=== PATIENT | female | born 1965 | race American Indian/Alaskan Native ===

== ENCOUNTER 2018-01-04 15:44 | Emergency (ER) | payer OTHER ==
[2018-01-04 15:54] VITALS: BMI 47.4
[2018-01-04 15:55] VITALS: TEMP 98.3
--- NOTE | 2018-01-04 16:06 | ED PDOC ---
Arrival/HPI - General Chief Complaint: Cough, Cold, Congestion Time Seen by Provider: 01/04/18 16:04 Historian: Patient - History of Present Illness Narrative History of Present Illness (Text): 01/04/18 16:24 A 52 year old female, whose past medical history includes DM, HTN, asthma, and bronchitis, presents to the emergency department complaining of cough with whitish-yellowish phlegm. Patient reports also experiencing stuffy nose and ears. States she went to go see her doctor but was told she had to make an appointment. Has been taking Robitussin but has had no relief. Patient denies shortness of breath, chest pain, chills, or any other complaints at this time. 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 Denies any history of smoking. PMD: Dr. Roberts Past Medical History - Provider Review Nursing Documentation Reviewed: Yes - Infectious Disease Hx of Infectious Diseases: None - Tetanus Immunization Tetanus Immunization: Unknown - Cardiac Hx Cardiac Disorders: Yes Hx Hypertension: Yes - Pulmonary Hx Respiratory Disorders: Yes Hx Bronchitis: Yes - Neurological Hx Neurological Disorder: No - HEENT Hx HEENT Disorder: No - Renal Hx Renal Disorder: No - Endocrine/Metabolic Hx Endocrine Disorders: No - Hematological/Oncological Hx Blood Disorders: No - Integumentary Hx Dermatological Disorder: No - Musculoskeletal/Rheumatological Hx Musculoskeletal Disorders: No - Gastrointestinal Hx Gastrointestinal Disorders: Yes Hx Diverticulitis: Yes Hx Gastroesophageal Reflux: Yes Other/Comment: Colon sx - Genitourinary/Gynecological Hx Genitourinary Disorders: No - Psychiatric Hx Psychophysiologic Disorder: Yes Hx Anxiety: Yes Hx Substance Use: No - Surgical History Other/Comment: Abdominal and colon - pt uncertain of what exactly the surgery was - Suicidal Assessment Feels Threatened In Home Enviroment: No Family/Social History - Physician Review Nursing Documentation Reviewed: Yes Family/Social History: No Known Family HX Smoking Status: Never Smoked Hx Alcohol Use: No Hx Substance Use: No Hx Substance Use Treatment: No Allergies/Home Meds Allergies/Adverse Reactions: Allergies No Known Allergies Allergy (Verified 01/04/18 15:55) Home Medications: Home Meds Medication Instructions Recorded Confirmed Enalapril [Vasotec] 10 mg PO DAILY 03/13/12 01/04/18 Aspirin [Lo-Dose Aspirin EC] 81 mg PO DAILY 01/04/18 01/04/18 Hydrochlorothiazide [Microzide] 12.5 mg PO DAILY 01/04/18 01/04/18 Simvastatin [Zocor] 20 mg PO DAILY 01/04/18 01/04/18 metFORMIN [glucOPHAGE] 850 mg PO BID 01/04/18 01/04/18 Review of Systems - Physician Review All systems were reviewed & negative as marked: Yes - Review of Systems Constitutional: absent: Night Sweats ENT: Sinus Congestion Respiratory: Cough (with whitish-yellowish phlegm). absent: SOB Cardiovascular: absent: Chest Pain Physical Exam Vital Signs Reviewed: Yes Vital Signs Temp Pulse Resp BP Pulse Ox 01/04/18 15:54 98.3 F 96 H 17 143/88 96 Temperature: Afebrile Blood Pressure: Normal Pulse: Regular Respiratory Rate: Normal Appearance: Positive for: Well-Appearing, Non-Toxic, Comfortable Pain Distress: None Mental Status: Positive for: Alert and Oriented X 3 - Systems Exam Head: Present: Atraumatic, Normocephalic Pupils: Present: PERRL Extroacular Muscles: Present: EOMI Conjunctiva: Present: Normal Ears: No: NORMAL TM (fluid in TM b/l) Mouth: Present: Moist Mucous Membranes Neck: Present: Normal Range of Motion Respiratory/Chest: Present: Decreased Breath Sounds, Rhonchi (scattered). No: Wheezes Cardiovascular: Present: Regular Rate and Rhythm, Normal S1, S2. No: Murmurs Abdomen: No: Tenderness, Distention, Peritoneal Signs Back: Present: Normal Inspection Upper Extremity: Present: Normal Inspection. No: Cyanosis, Edema Lower Extremity: Present: Normal Inspection. No: Edema Neurological: Present: GCS=15, CN II-XII Intact, Speech Normal Skin: Present: Warm, Dry, Normal Color. No: Rashes Psychiatric: Present: Alert, Oriented x 3, Normal Insight, Normal Concentration Medical Decision Making ED Course and Treatment: 01/04/18 16:25 Impression: 52 year old female with cough, congestion. Physical exam shows rhonchi scattered, no wheezing, fluid TM b/l. Plan: -- Duoneb -- Reassess and disposition Progress Notes: 01/04/18 17:35 Upon reassessment, patient's liungs are clear and she states her symptoms have resolved. Patient states she has a prescription for an inhaler from her PCP and will get it filled upon discharge. Patient is stable for d/c and is agreeable w/POC. Patient to be discharged at this time. - Scribe Statement The provider has reviewed the documentation as recorded by the Gianfranco Wong Provider Scribe Provider Scribe Attestation: All medical record entries made by the Scribe were at my direction and personally dictated by me. I have reviewed the chart and agree that the record accurately reflects my personal performance of the history, physical exam, medical decision making, and the department course for this patient. I have also personally directed, reviewed, and agree with the discharge instructions and disposition. Disposition/Present on Arrival - Present on Arrival Any Indicators Present on Arrival: No History of DVT/PE: No History of Uncontrolled Diabetes: No Urinary Catheter: No History of Decub. Ulcer: No History Surgical Site Infection Following: None - Disposition Have Diagnosis and Disposition been Completed?: Yes Diagnosis: Bronchitis Disposition: HOME/ ROUTINE Disposition Time: 17:35 Patient Plan: Discharge Condition: IMPROVED Discharge Instructions (ExitCare): Acute Bronchitis Additional Instructions: IRMA ASHLEY, thank you for letting us take care of you today. Your provider was Armida Portillo MD and you were treated for COUGHING/COLD. The emergency medical care you received today was directed at your acute symptoms. If you were prescribed any medication, please fill it and take as directed. It may take several days for your symptoms to resolve. Return to the Emergency Department if your symptoms worsen, do not improve, or if you have any other problems. Please contact your doctor or call one of the physicians/clinics you have been referred to that are listed on the Patient Visit Information form that is included in your discharge packet. Bring any paperwork you were given at discharge with you along with any medications you are taking to your follow up visit. Our treatment cannot replace ongoing medical care by a primary care provider outside of the emergency department. Thank you for allowing the [facility] team to be part of your care today. Referrals: Valentina Roberts MD [Primary Care Provider] - Follow up with primary Forms: [employer] (Angolan)
[2018-01-04] MEDS: Albuterol-Ipratrop 3 mg / 0.5 (3 ml) UD IH SCH ×3 (16:15→16:39)
[2018-01-04 18:20] VITALS: BP 144/82; PULSE 98; RESP 20; O2SAT 98
== END 2018-01-04 18:20 | disposition home or self-care (01) ==
LOC: ED 15:44
DX: J40 Bronchitis, not specified as acute or chronic (principal)

== ENCOUNTER 2018-03-13 17:59 | Emergency (ER) | payer OTHER ==
[2018-03-13 17:59] VITALS: BMI 47.4
[2018-03-13] MEDS ORDERED: TDAP Vaccine 0.5 mL Syr IM ONE (18:28)
--- NOTE | 2018-03-13 18:28 | ED PDOC ---
Arrival/HPI - General Chief Complaint: Abnormal Skin Integrity Historian: Patient - History of Present Illness Narrative History of Present Illness (Text): 03/13/18 18:25 52 y/o female, pmh including htn/hld/dm/low vitamin D/asthma, nkda, last tetanus over 10 years ago, c/o rt. lateral forehead laceration x 1 hour. Pt. was cleaning the clothing at home, tripped over the string, fall on the rt. eyebrow and forehead region, sustained laceration, no dental or neck/back/extremity injury, no LOC, no nausea/vomiting, no numbness or tingling, no abdominal or chest injury, no chest pain or shortness of breath, no other medical or psychological complaints. Past Medical History - Provider Review Nursing Documentation Reviewed: Yes - Infectious Disease Hx of Infectious Diseases: None - Tetanus Immunization Tetanus Immunization: Unknown - Reproductive Menopause: Yes - Cardiac Hx Cardiac Disorders: Yes Hx Hypertension: Yes - Pulmonary Hx Respiratory Disorders: Yes Hx Bronchitis: Yes - Neurological Hx Neurological Disorder: No - HEENT Hx HEENT Disorder: No - Renal Hx Renal Disorder: No - Endocrine/Metabolic Hx Endocrine Disorders: Yes Hx Diabetes Mellitus Type 2: Yes - Hematological/Oncological Hx Blood Disorders: No - Integumentary Hx Dermatological Disorder: No - Musculoskeletal/Rheumatological Hx Musculoskeletal Disorders: No - Gastrointestinal Hx Gastrointestinal Disorders: Yes Hx Diverticulitis: Yes Hx Gastroesophageal Reflux: Yes Other/Comment: Colon sx - Genitourinary/Gynecological Hx Genitourinary Disorders: No - Psychiatric Hx Psychophysiologic Disorder: Yes Hx Anxiety: Yes Hx Substance Use: No - Surgical History Other/Comment: Abdominal - Suicidal Assessment Feels Threatened In Home Enviroment: No Family/Social History - Physician Review Nursing Documentation Reviewed: Yes Family/Social History: Unknown Family HX Smoking Status: Never Smoked Hx Alcohol Use: No Hx Substance Use: No Hx Substance Use Treatment: No Allergies/Home Meds Allergies/Adverse Reactions: Allergies No Known Allergies Allergy (Verified 03/13/18 18:16) Home Medications: Home Meds Medication Instructions Recorded Confirmed Enalapril [Vasotec] 10 mg PO DAILY 03/13/12 03/13/18 Aspirin [Lo-Dose Aspirin EC] 81 mg PO DAILY 01/04/18 03/13/18 Hydrochlorothiazide [Microzide] 25 mg PO DAILY 01/04/18 03/13/18 Simvastatin [Zocor] 20 mg PO DAILY 01/04/18 03/13/18 metFORMIN [glucOPHAGE] 850 mg PO BID 01/04/18 03/13/18 Cholecalciferol (Vitamin D3) 1 cap PO Q7D 03/13/18 03/13/18 [Vitamin D3] Review of Systems - Review of Systems Constitutional: absent: Fatigue, Fevers Eyes: absent: Vision Changes ENT: absent: Hearing Changes Respiratory: absent: SOB, Cough Cardiovascular: absent: Chest Pain Gastrointestinal: absent: Abdominal Pain, Diarrhea, Nausea, Vomiting Musculoskeletal: absent: Arthralgias, Neck Pain, Joint Swelling, Myalgias Skin: Laceration. absent: Rash, Pruritis, Skin Lesions, Abscess, Ulcer, Cellulitis Neurological: absent: Headache, Dizziness Psychiatric: absent: Anxiety, Depression, Suicidal Ideation Physical Exam Vital Signs Reviewed: Yes Vital Signs Temp Pulse Resp BP Pulse Ox 03/13/18 18:18 98.1 F 89 17 160/89 H 97 Temperature: Afebrile Blood Pressure: Hypertensive Pulse: Regular Respiratory Rate: Normal Appearance: Positive for: Well-Appearing, Non-Toxic, Comfortable Pain Distress: Mild Mental Status: Positive for: Alert and Oriented X 3 - Systems Exam Head: Present: Atraumatic, Normocephalic, Other (Facial: rt. lateral eyerbow not involving the hair region noted to have 1.5cm superficial to intermediate depth laceration with no swelling on the rt. supralateral orbital rim region with mild ecchymosis. ). No: Tenderness, Contusion, Swelling, Ecchymosis, Abrasion Pupils: Present: PERRL, Other (no entractment or gaze. ) Extroacular Muscles: Present: EOMI. No: Entrapment Conjunctiva: Present: Normal Ears: Present: NORMAL TM, Normal Canal. No: Erythema Mouth: Present: Moist Mucous Membranes Pharnyx: Present: Normal. No: ERYTHEMA, TONSILS ENLARGED Nose (External): Present: Atraumatic. No: Abrasion, Contusion, Laceration Nose (Internal): Present: Normal Inspection, No Active Bleeding. No: Rhinorrhea, Septal Hematoma, Epistaxis Neck: Present: Normal Range of Motion, Trachea Midline. No: Meningeal Signs, MIDLINE TENDERNESS, Paraspinal Tenderness, Lymphadenopathy Respiratory/Chest: Present: Clear to Auscultation, Good Air Exchange. No: Respiratory Distress, Accessory Muscle Use Cardiovascular: Present: Regular Rate and Rhythm, Normal S1, S2. No: Murmurs Abdomen: No: Tenderness, Distention, Peritoneal Signs, Rebound, Guarding Back: Present: Normal Inspection. No: CVA Tenderness, Midline Tenderness, Paraspinal Tenderness, Pain with Leg Raise, Decubitus Ulcer Upper Extremity: Present: Normal Inspection, Normal ROM, NORMAL PULSES, Neurovascularly Intact, Capillary Refill < 2s. No: Cyanosis, Edema, Tenderness, Swelling, Deformity Lower Extremity: Present: Normal Inspection, NORMAL PULSES, Normal ROM, Neurovascularly Intact, Capillary Refill < 2 s. No: Edema, Tenderness, Swelling, Deformity Neurological: Present: GCS=15, CN II-XII Intact, Speech Normal, Motor Func Grossly Intact, Gait Normal, Memory Normal Skin: Present: Warm, Dry, Normal Color. No: Rashes Psychiatric: Present: Alert, Oriented x 3, Normal Insight, Normal Concentration Medical Decision Making ED Course and Treatment: 03/13/18 18:32 -CT -tdap -wound irrigate and clean -will suture 03/13/18 18:35 Procedure: Laceration Repair Performed by the emergency provider Location: Rt. lateral supralateral orbital region Description: 1.5cm superficial to intermediate dept Distal CMS: Normal. No deficits. Neurovascularly intact. Anesthesia: Lidocaine 1% 0.5cc Preperation: The wound was cleaned with NS 1000cc and clean with Betadyne. The area was prepped and draped in the usual sterile fashion. Exploration: The wound was explored and no foreign bodies were found. Procedure: The wound was closed with 6-0 nylon. There was () approximation. In total, 4 were used. Post-Procedure: Good closure and hemostasis. The patient tolerated procedure well and there were no complications. CMS remains intact. Post procedure dressing applied. 03/13/18 22:20 -CT Head: No acute intracranial abnormality. -CT Facial:Unremarkable maxillofacial CT -Pain decreased, feeling much better, -Discharge home with tylenol, bacitracin oinment, ice pack, keep the dressing and sutures dry and clean for 2 days then clean clean it twice daily, sutures removed by day 5-6, follow up with your own pmd within 2 days, return to the ER for any new or worsening signs or symptoms. - RAD Interpretation Radiology Orders: 03/13/18 18:24 HEAD W/O CONTRAST [CT] Stat MAXILLOFACIAL W/O CONTRAST [CT] Stat -CT Head: EXAM: CT Head without Intravenous Contrast. CLINICAL HISTORY: FALL TECHNIQUE: Axial computed tomography images of the head/brain without intravenous contrast. 1001.19 mGy-cm COMPARISON: None provided. FINDINGS: BRAIN No acute intraparenchymal hemorrhage. No mass lesion. No CT evidence for acute territorial infarct. No midline shift or extra-axial collections. VENTRICLES: No hydrocephalus. ORBITS: The orbits are unremarkable. SINUSES AND MASTOIDS: The paranasal sinuses and mastoid air cells are clear. BONES: No fracture. SOFT TISSUES: Unremarkable. IMPRESSION: No acute intracranial abnormality. Electronically signed on Mar 13, 2018 10:18:16 PM EST by: Carlos Farrell M.D., MBA Certified By ABR & CBC[employer] Fellowship Trained MRI and CT Specialist --------- - -CT Facial: EXAM: CT Maxillofacial without Intravenous Contrast. CLINICAL HISTORY: FALL - SUSTAINED LACERATION TECHNIQUE: Axial computed tomography images of the face without intravenous contrast. Sagittal and coronal reformatted images were generated. 821.77 mGy-cm CONTRAST: Without COMPARISON: None provided. FINDINGS: BONES: No acute fracture or aggressive appearing osseous lesion. The mandible is intact. SOFT TISSUES: The soft tissues are unremarkable. SINUSES: The sinuses are clear. ORBITS: The orbits are normal. No retrobulbar hematoma or mass. IMPRESSION: Unremarkable maxillofacial CT. Electronically signed on Mar 13, 2018 9:19:42 PM EST by: Carlos Farrell M.D., MBA Certified By [facility]BR & CBC[employer] Fellowship Trained MRI and CT Specialist Interior Assemblies Installer: Radiologist - PA / DRAFTER / Resident Statement MD/DO has reviewed & agrees with the documentation as recorded. Disposition/Present on Arrival - Present on Arrival Any Indicators Present on Arrival: No History of DVT/PE: No History of Uncontrolled Diabetes: Yes Urinary Catheter: No History of Decub. Ulcer: No History Surgical Site Infection Following: None - Disposition Have Diagnosis and Disposition been Completed?: Yes Diagnosis: Fall, Facial laceration, Facial contusion Disposition: HOME/ ROUTINE Disposition Time: 19:15 Patient Plan: Discharge Patient Problems: Current Active Problems Problem Status Onset Fall Acute Facial laceration Acute Facial contusion Acute Condition: IMPROVED Additional Instructions: -Discharge home with tylenol, bacitracin oinment, ice pack, keep the dressing and sutures dry and clean for 2 days then clean clean it twice daily, sutures removed by day 5-6, follow up with your own pmd within 2 days, return to the ER for any new or worsening signs or symptoms. Prescriptions: Acetaminophen [Pain Relief] 500 mg PO QID PRN #30 tablet PRN Reason: Other Bacitracin Ointment [Bacitracin] 1 appful TOP BID #15 g Referrals[facility] [place]] - Follow up with primary Forms: [facility] (Croatian), WORK NOTE
[2018-03-13 22:18] VITALS: PULSE 80; RESP 16; TEMP 98.2; O2SAT 98
[2018-03-13 22:23] VITALS: BP 150/86
--- NOTE | 2018-03-14 08:48 | CT ---
Date of service: 03/13/2018 PROCEDURE: CT HEAD WITHOUT CONTRAST. HISTORY: fall COMPARISON: None available. TECHNIQUE: Axial computed tomography images were obtained through the head/brain without intravenous contrast. Radiation dose: Total exam DLP = 1001.19 mGy-cm. This CT exam was performed using one or more of the following dose reduction techniques: Automated exposure control, adjustment of the mA and/or kV according to patient size, and/or use of iterative reconstruction technique. FINDINGS: HEMORRHAGE: No intracranial hemorrhage. BRAIN: No mass effect or edema. No atrophy or chronic microvascular ischemic changes. VENTRICLES: Unremarkable. No hydrocephalus. CALVARIUM: Unremarkable. PARANASAL SINUSES: Unremarkable as visualized. No significant inflammatory changes. MASTOID AIR CELLS: Unremarkable as visualized. No inflammatory changes. OTHER FINDINGS: The report concurs with the preliminary [facility] report IMPRESSION: No acute findings
--- NOTE | 2018-03-14 08:50 | CT ---
Date of service: 03/13/2018 PROCEDURE: CT MAXILLOFACIAL BONES WITHOUT CONTRAST HISTORY: fall, sustained laceration COMPARISON: None available. TECHNIQUE: Contiguous axial CT images of the maxillofacial bones were obtained. Coronal and sagittal reformats were generated. Radiation dose: Total exam DLP = 821.77 mGy-cm. This CT exam was performed using one or more of the following dose reduction techniques: Automated exposure control, adjustment of the mA and/or kV according to patient size, and/or use of iterative reconstruction technique. FINDINGS: NASAL BONES: Unremarkable. ORBITS: Unremarkable. PARANASAL SINUSES/ MASTOIDS: Clear. MAXILLA: Unremarkable. MANDIBLE/ TEMPOROMANDIBULAR JOINTS: Unremarkable. SKULL BASE: Unremarkable. TEMPORAL BONES: Middle ears and mastoid grossly unremarkable. OTHER FINDINGS: The report concurs with the preliminary [facility] report IMPRESSION: Unremarkable non contrast enhanced CT of the maxillofacial bones.
== END 2018-03-13 22:26 | disposition home or self-care (01) ==
LOC: ED 17:59
DX: S01.111A Laceration without foreign body of right eyelid and periocular area, initial encounter (principal); W01.0XXA Fall on same level from slipping, tripping and stumbling without subsequent striking against object, initial encounter; Y93.E9 Activity, other interior property and clothing maintenance; Y92.009 Unspecified place in unspecified non-institutional (private) residence as the place of occurrence of the external cause; Z23 Encounter for immunization